=== PATIENT | female | born 1980 | race American Indian/Alaskan Native ===

== ENCOUNTER 2016-07-22 14:17 | Inpatient (IN) | payer MEDICAID, OTHER ==
[2016-07-22 16:14] LABS: Basophils % (Auto) 0.3 % (0.0-1.8); Eosinophils % (Auto) 0.1 % (0.0-4.3); Mean Corpuscular HGB Conc 30 % (30-34); Mean Corpuscular Volume 77 fl (79-97); Platelet Count 398 K/mm3 (140-440)
[2016-07-22 16:24] LABS: Mean Corpuscular Hemoglobin 23 pg (28-32)
[2016-07-22 16:25] LABS: Anion Gap 19 mmol/L; BUN/Creatinine Ratio 14.28; Blood Urea Nitrogen 10 mg/dL (7-17); Carbon Dioxide 25 mmol/L (22-30); Chloride 97.3 mmol/L (98-107); Glucose 141 mg/dL (65-100); Potassium 4.4 mmol/L (3.6-5.0); Sodium 137 mmol/L (137-145)
[2016-07-22 16:27] LABS: Hematocrit 18.3 % (30.3-42.9); Hemoglobin 5.4 gm/dl (10.1-14.3)
[2016-07-22] MEDS ORDERED: NACL 0.9% 500 ML 500 ML IV ONE (16:53)
--- NOTE | 2016-07-22 17:10 | Emergency Department Report ---
HPI - General Chief Complaint: Dizziness Time Seen by Provider: 07/22/16 16:52 - HPI HPI: This is a 36-year-old Afro-[place]guillan female who presents to the emergency department from home with complaint of a generalized headache consistent with her migraines, dizziness, chills and some vision changes. The patient says that she has been having a headache every day for the past 2 weeks, which is also the length of time that the other symptoms have been going on. Patient says that she gets a loss of vision in both eyes when standing that last about 7 -8 minutes but then it goes away and does not occur when she is sitting or laying down. She also has been having some paresthesias to hands. She has a past medical history of migraines. She does not have a primary care doctor. She tried some Zyrtec for her symptoms without much relief. No recent travel or sick contacts at home. Patient says that she has been having a menstrual cycle going on for the past 3 months and which she bleeds every day, sometimes in larger amounts and with clots. No WHIZZER HAND. ED Past Medical Hx - Past Medical History Hx Hypertension: No Hx Congestive Heart Failure: No Hx Diabetes: No Hx Deep Vein Thrombosis: No Hx Renal Disease: No Hx Sickle Cell Disease: No Hx Headaches / Migraines: Yes Hx Seizures: No Hx Asthma: No Hx COPD: No Hx HIV: No - Surgical History Past Surgical History?: No - Social History Smoking Status: Never Smoker Substance Use Type: None - Medications Home Medications: Home Medications Medication Instructions Recorded Confirmed Last Taken Type No Known Home Medications [No 07/18/13 07/18/13 Unknown History Reported Home Medications] ED Review of Systems ROS: Stated complaint: NUMB/DIZZINESS/SHIVERING/MIGRAINES Other details as noted in HPI Comment: All other systems reviewed and negative Constitutional: weakness. denies: chills, fever Eyes: vision change. denies: eye pain ENT: denies: ear pain, throat pain Respiratory: denies: cough, shortness of breath, wheezing Cardiovascular: denies: chest pain, palpitations Gastrointestinal: denies: abdominal pain, nausea, diarrhea Genitourinary: other (vaginal bleeding). denies: urgency, dysuria, discharge Musculoskeletal: denies: back pain, joint swelling, arthralgia Skin: denies: rash, lesions Neurological: headache, paresthesias Physical Exam - Physical Exam Vital Signs: Vital Signs 07/22/16 14:42 Temperature 99.1 F Pulse Rate 116 H Respiratory 20 Rate Blood Pressure 122/76 O2 Sat by Pulse 100 Oximetry Physical Exam: GENERAL: The patient is well-developed well-nourished. HEENT: Normocephalic. Atraumatic. Extraocular motions are intact. Patient has moist mucous membranes. Pupils equal reactive to light bilaterally. No nystagmus. Pale conjunctiva. NECK: Supple. Trachea is midline. CHEST/LUNGS: Clear to auscultation. There is no respiratory distress noted. HEART/CARDIOVASCULAR: Regular. There is no tachycardia. There is no gallop rub or murmur. ABDOMEN: Abdomen is soft, nontender. No guarding rebound tenderness. Patient has normal bowel sounds. There is no abdominal distention. SKIN: Warm and dry. NEURO: The patient is awake, alert, and oriented. The patient is cooperative. The patient has no focal neurologic deficits. The patient has normal speech. Cranial nerves II through XII grossly intact. MUSCULOSKELETAL: There is no tenderness or deformity. There is no limitation range of motion. There is no evidence of acute injury. Cap refill less than 2 seconds. ED Course Vital Signs 07/22/16 14:42 Temperature 99.1 F Pulse Rate 116 H Respiratory 20 Rate Blood Pressure 122/76 O2 Sat by Pulse 100 Oximetry ED Medical Decision Making - Lab Data Result diagrams: 07/22/16 15:52 07/22/16 15:52 - EKG Data -: EKG Interpreted by [place] EKG shows normal: sinus rhythm, axis, intervals, QRS complexes, ST-T waves Rate: tachycardia (103 bpm) - EKG Data When compared to previous EKG there are: previous EKG unavailable Interpretation: normal EKG (with sinus tach) - Radiology Data Radiology results: report reviewed CT of the head does not show any acute process including no hemorrhage, mass, shift, diffuse edema or skull fracture. Transvaginal ultrasound shows a 2.37 a left ovarian cyst. The endometrial stripe thickness measures up to 21 mm. This could be secondary to endometrial hyperplasia but other etiology such as carcinomas not excluded. Small amount of free fluid seen in the dependent portion of the pelvis. This is a nonspecific finding. - Medical Decision Making 36-year-old female presents with a two-week history of intermittent headaches, some vision change when standing or walking, chills and some generalized dizziness or weakness. I believe that most of the symptoms are due to the fact that the patient has a hemoglobin of 5.4. 2 units of packed red blood cells and ordered for transfusion to start. Due to her complaint of vision changes a CT of the head was done that did not show any bleed, shift, mass or any acute process. Patient's been having a 3 month history of vaginal bleeding. A transvaginal ultrasound was done that shows increased endometrial thickness that could be hyperplasia but carcinoma must be excluded as well. 2. Recent and a left ovarian cyst. Breasts the patient's labs are mostly unremarkable. EKG is also any signs of ST elevation [place] or dysrhythmia. She'll be admitted to hospital for transfusion and possible WHIZZER HAND consultation. She's been accepted for admission by the hospitalist, Dr. Lacy. - Differential Diagnosis dysfun uterine bleeding, brain tumor, compress migraine, symptomatically an Critical Care Time: No Critical care attestation.: If time is entered above; I have spent that time in minutes in the direct care of this critically ill patient, excluding procedure time. ED Disposition Clinical Impression: Dysfunctional uterine bleeding, Symptomatic anemia, Dizziness Ovarian cyst Qualifiers: Laterality: left Qualified Code(s): N83.202 - Unspecified ovarian cyst, left side Disposition: OP ADMITTED IP TO THIS HOSP Is pt being admited?: Yes Condition: Stable Time of Disposition: 20:59
--- NOTE | 2016-07-22 18:52 | Cat Scan Report ---
FINAL REPORT EXAM: CT HEAD/BRAIN WO CON HISTORY: ALTAMIRANO, vision change TECHNIQUE: Noncontrast serial axial images from skull base to vertex. PRIORS: None. FINDINGS: There is no mass effect or midline shift. There are no abnormal intra or extra-axial fluid collections. Cortical sulci and lateral ventricles are within normal limits for size and configuration. Basilar cisterns are patent. No acute intracranial hemorrhage is identified. Visualized paranasal sinuses and mastoid air cells are well aerated. No acute osseous abnormality is identified. IMPRESSION: 1. No abnormal mass or acute intracranial hemorrhage is identified.
[2016-07-22] MEDS ORDERED: NACL 0.9% 500 ML 500 ML ONE (19:43)
--- NOTE | 2016-07-22 19:50 | Ultrasound Report ---
FINAL REPORT EXAM: US TRANSVAGINAL HISTORY: Vaginal bleeding, pelvic pain TECHNIQUE: Endovaginal ultrasound was performed in multiple grayscale sonographic images were obtained of the uterus and adnexa. Doppler interrogation of the ovaries was performed. PRIORS: Transabdominal pelvic ultrasound from 07/22/2016 FINDINGS: Uterus measures approximately 10 x 5.8 x 6.7 centimeters with endometrial stripe thickness measuring up to 21.8 millimeters. Right ovary measures approximately 3.3 x 2.3 x 3.2 centimeters. Left ovary measures approximately 5.1 x 3.9 x 2.4 centimeters. There is a 2.3 centimeters cyst in the left ovary. Blood flow was detected in the ovaries, bilaterally. Small amount of free fluid is seen in the pelvis. IMPRESSION: 1. 2.3 centimeter left ovarian cyst. 2. Endometrial stripe thickness measures up to 21.8 millimeters. This could be secondary to endometrial hyperplasia, but other etiology such is carcinoma is not excluded. Biopsy may be necessary for diagnosis. Gynecology consultation is recommended.
--- NOTE | 2016-07-22 19:56 | Ultrasound Report ---
FINAL REPORT EXAM: US PELVIC COMPLETE HISTORY: Vaginal bleeding, pelvic pain TECHNIQUE: Transabdominal ultrasound was performed in multiple grayscale sonographic images were obtained of the uterus and adnexa PRIORS: Endovaginal ultrasound from 07/22/2016 FINDINGS: Uterus measures approximately 10 x 5.8 x 6.7 centimeters. Prominent endometrial stripe is again noted. Ovaries were not visualized during the exam. IMPRESSION: 1. Nonvisualization of the ovaries. 2. Prominent endometrial stripe is again noted. Biopsy may be necessary for further evaluation. Please refer to dictation from endovaginal ultrasound from 07/22/2016 for additional information.
[2016-07-22] MEDS ORDERED: DULCOLAX PR PRN (21:03)
[2016-07-22] MEDS ORDERED: TYLENOL PO PRN (21:03)
[2016-07-22] MEDS ORDERED: MILK OF MAGNESIA PO PRN (21:03)
[2016-07-22] MEDS ORDERED: ZOFRAN IV PRN (21:03)
--- NOTE | 2016-07-22 21:58 | History and Physical Report ---
History of Present Illness Date of examination: 07/22/16 Date of admission: 07/22/16 21:03 Chief complaint: Headache and dizzy spells for 2 weeks Transient loss of vision when standing for 2 weeks History of present illness: Miss. Simmons is a 36-year-old Afro-[place] female with history of chronic headaches who presents to the emergency department from home with complaint of a generalized headache consistent with her migraines, dizziness, and some vision changes. The patient says that she has been having a headache every day for the past 2 weeks, Patient says that she gets a loss of vision in both eyes when standing that last about 7-8 minutes but then it goes away and does not occur when she is sitting or laying down. She also has been having some paresthesias to hands. She has a past medical history of migraines. However she denies seeing a neurologist in the past. He denies any family history of migraine headaches She does not have a primary care doctor. She tried some Zyrtec for her symptoms without much relief. Patient says that she has been having a menstrual cycle going on for the past 3 months and she bleeds every day, sometimes in larger amounts and with clots. He has not seen an MILK BOTTLER since delivering a baby 2013. During workup she was found to be severely anemic with a hemoglobin of 5.2 and she is admitted for further management Past History Past Medical History: migraines Past Surgical History: No surgical history Social history: no significant social history Family history: no significant family history Medications and Allergies Allergies Allergy/AdvReac Type Severity Reaction Status Date / Time No Known Allergies Allergy Unverified 07/18/13 20:40 Home Medications Medication Instructions Recorded Confirmed Last Taken Type No Known Home Medications [No 07/18/13 07/18/13 Unknown History Reported Home Medications] Active Meds: Active Medications Acetaminophen (Tylenol) 650 mg PO Q4H PRN PRN Reason: Pain MILD(1-3)/Fever >100.5/ALTAMIRANO Acetaminophen/Hydrocodone Bitart ([place] 5/325) 1 each PO Q6H PRN PRN Reason: Pain, Moderate (4-6) Bisacodyl (Dulcolax) 10 mg AR QDAY PRN PRN Reason: Constipation unrelieved by MOM Heparin Sodium (Porcine) (Heparin) 5,000 unit SUB-Q Q8HR CHRIS Magnesium Hydroxide (Milk Of Magnesia) 30 ml PO Q4H PRN PRN Reason: Constipation Ondansetron HCl (Zofran) 4 mg IV Q8H PRN PRN Reason: N/V unrelieved by Reglan Review of Systems Constitutional: weakness, no weight loss, no weight gain, no fever, no chills Ears, nose, mouth and throat: headache (chronic headaches for many years. Denies any aura preceding the headache but she states she not function during headaches), no ear pain, no sore throat Cardiovascular: lightheadedness, no chest pain, no palpitations, no syncope, no shortness of breath, no dyspnea on exertion Respiratory: no cough, no shortness of breath, no dyspnea on exertion Gastrointestinal: no abdominal pain, no nausea, no vomiting, no diarrhea, no constipation, no melena Genitourinary Female: menorrhagia (she has been bleeding every day for the past 3 months), no dysmenorrhea, no pelvic pain, no flank pain, no urinary frequency , no stress incontinence, no urge incontinence Rectal: no pain Musculoskeletal: no neck pain, no low back pain Integumentary: no rash Neurological: headaches, migraines, no head injury, no seizures, no syncope Psychiatric: no anxiety, no depression Endocrine: no excessive thirst, no polydipsia, no polyuria Exam - Constitutional Vitals: Temp Pulse Resp BP Pulse Ox 98.6 F 99 H 15 113/65 100 07/22/16 20:55 07/22/16 20:55 07/22/16 20:55 07/22/16 20:55 07/22/16 20:55 General appearance: Present: no acute distress, well-nourished - EENT Eyes: Present: PERRL, EOM intact ENT: hearing intact, clear oral mucosa, no thrush - Neck Neck: Present: supple, normal ROM. Absent: masses or JVD - Respiratory Respiratory effort: normal Respiratory: bilateral: CTA - Cardiovascular Rhythm: regular Heart Sounds: Present: S1 & S2 - Extremities Extremities: No edema - Abdominal General gastrointestinal: Present: soft, non-tender. Absent: hepatomegaly, splenomegaly - Rectal Rectal Exam: deferred - Integumentary Integumentary: Present: clear - Musculoskeletal Musculoskeletal: strength equal bilaterally - Psychiatric Psychiatric: appropriate mood/affect - Neurologic Neurologic: CNII-XII intact, no focal deficits, moves all extremities Results - Labs CBC & Chem 7: 07/22/16 15:52 07/22/16 15:52 Assessment and Plan - Patient Problems (1) Symptomatic anemia Current Visit: Yes Status: Acute Plan to address problem: Patient is currently receiving 2 units of packed RBC Monitor H&H (2) Menorrhagia with irregular cycle Current Visit: Yes Status: Acute Plan to address problem: [employer] AROUND consult has been requested Transvaginal ultrasound shows endometrial hyperplasia and no mention of any fibroids (3) Chronic headaches Current Visit: Yes Status: Acute Qualifiers: Headache type: H Intractability: I Plan to address problem: Most likely tension headaches Rule out migraines We will request neurology consult as the patient has been having transient vision loss for the past 2 weeks (4) Transient visual loss of both eyes Current Visit: Yes Status: Acute Plan to address problem: Await neurology evaluation
[2016-07-22] MEDS: NORCO 5/325 PO PRN (23:49)
[2016-07-23] MEDS ORDERED: NACL 0.9% 500 ML 500 ML ONE (00:05)
[2016-07-23] MEDS: HEPARIN SUB-Q SCH ×4 (00:40→22:00)
[2016-07-23 06:32] LABS: Hematocrit 22.9 % (30.3-42.9); Hemoglobin 7.1 gm/dl (10.1-14.3); Mean Corpuscular HGB Conc 31 % (30-34); Mean Corpuscular Volume 79 fl (79-97); Platelet Count 329 K/mm3 (140-440); Red Blood Count 2.91 M/mm3 (3.65-5.03); Red Cell Distribution Width 17.1 % (13.2-15.2); White Blood Count 12.6 K/mm3 (4.5-11.0)
[2016-07-23 06:36] LABS: Mean Corpuscular Hemoglobin 25 pg (28-32)
--- NOTE | 2016-07-23 11:29 | Progress Note ---
Assessment and Plan Assessment and plan: Miss. Simmons is a 36-year-old Afro-Martiniquais female with history of chronic headaches who presents to the emergency department from home with complaint of a generalized headache consistent with her migraines, dizziness, and some vision changes. The patient says that she has been having a headache every day for the past 2 weeks, Patient says that she gets a loss of vision in both eyes when standing that last about 7-8 minutes but then it goes away and does not occur when she is sitting or laying down. She also has been having some paresthesias to hands. She has a past medical history of migraines. However she denies seeing a neurologist in the past. He denies any family history of migraine headaches She does not have a primary care doctor. She tried some Zyrtec for her symptoms without much relief. Patient says that she has been having a menstrual cycle going on for the past 3 months and she bleeds every day, sometimes in larger amounts and with clots. He has not seen an [employer]PER[employer] since delivering a baby 2013. During workup she was found to be severely anemic with a hemoglobin of 5.2 and she is admitted for further management * Symptomatic anemia secondary to menorrhagia * Menorrhagia with irregular cycle * Chronic migraine * Recurrent transient visual loss both eyes rule out migraine with aura rule out TIA * Morbid obesity Plan * We'll obtain an MRI of the brain rule out Internuclear opathalamalogy * Await Neurology and G[employer]INE MECH[employer]IC EVAL * Considering the patient states she blanks out for about 8 minutes advised against driving until this is resolved. She verbalizes that she does not drive at this time. * Weight loss modality has been discussed in detail * DVT and GI prophylaxis * Plan of care discussed with the patient in detail and also with family member in the room with the patient's consent * Suspected discharge in a.m. if hemoglobin and hematocrit stable History Interval history: Follow-up severe anemia Patient seen and examined this morning in no acute distress Denies any chest pain, nausea, vomiting, diarrhea No fever noted blood pressure controlled No adverse events reported to me by nursing staff Hospitalist Physical - Physical exam Narrative exam: VITAL SIGNS: Reviewed. GENERAL: The patient appeared well nourished and normally developed, obese. Vital signs as documented. HEAD: No signs of head trauma. EYES: Pupils are equal. Extraocular motions intact. EARS: Hearing grossly intact. MOUTH: Oropharynx is normal. NECK: No adenopathy, no JVD. CHEST: Chest with clear breath sounds bilaterally. No wheezes, rales, or rhonchi. CARDIAC: Regular rate and rhythm. S1 and S2, without murmurs, gallops, or rubs. VASCULAR: No Edema. Peripheral pulses normal and equal in all extremities. ABDOMEN: Soft, without detectable tenderness. No sign of distention. No rebound or guarding, and no masses palpated. Bowel Sounds normal. MUSCULOSKELETAL: Good range of motion of all major joints. Extremities without clubbing, cyanosis or edema. NEUROLOGIC EXAM: Alert and oriented x 3. No focal sensory or strength deficits. Speech normal. Follows commands. PSYCHIATRIC: Mood normal. SKIN: No rash or lesions. - Constitutional Vitals: Temp Pulse Resp BP Pulse Ox 98.3 F 76 16 107/59 99 07/23/16 07:05 07/23/16 07:05 07/23/16 07:05 07/23/16 07:05 07/23/16 07:05 General appearance: Present: no acute distress, well-nourished Results - Labs CBC & Chem 7: 07/23/16 05:54 07/22/16 15:52 Labs: Laboratory Last Values WBC 12.6 K/mm3 (4.5-11.0) H 07/23/16 05:54 RBC 2.91 M/mm3 (3.65-5.03) L 07/23/16 05:54 Hgb 7.1 gm/dl (10.1-14.3) L 07/23/16 05:54 Hct 22.9 % (30.3-42.9) L 07/23/16 05:54 MCV 79 fl (79-97) 07/23/16 05:54 MCH 25 pg (28-32) L 07/23/16 05:54 MCHC 31 % (30-34) 07/23/16 05:54 RDW 17.1 % (13.2-15.2) H 07/23/16 05:54 Plt Count 329 K/mm3 (140-440) 07/23/16 05:54 Lymph % (Auto) 14.9 % (13.4-35.0) 07/22/16 15:52 [place] % (Auto) 5.8 % (0.0-7.3) 07/22/16 15:52 Eos % (Auto) 0.1 % (0.0-4.3) 07/22/16 15:52 Baso % (Auto) 0.3 % (0.0-1.8) 07/22/16 15:52 Lymph # 1.9 K/mm3 (1.2-5.4) 07/22/16 15:52 [place] # 0.7 K/mm3 (0.0-0.8) 07/22/16 15:52 Eos # 0.0 K/mm3 (0.0-0.4) 07/22/16 15:52 Baso # 0.0 K/mm3 (0.0-0.1) 07/22/16 15:52 Seg Neutrophils % 78.9 % (40.0-70.0) H 07/22/16 15:52 Seg Neutrophils # 10.2 K/mm3 (1.8-7.7) H 07/22/16 15:52 Sodium 137 mmol/L (137-145) 07/22/16 15:52 Potassium 4.4 mmol/L (3.6-5.0) 07/22/16 15:52 Chloride 97.3 mmol/L (98-107) L 07/22/16 15:52 Carbon Dioxide 25 mmol/L (22-30) 07/22/16 15:52 Anion Gap 19 mmol/L 07/22/16 15:52 BUN 10 mg/dL (7-17) 07/22/16 15:52 Creatinine 0.7 mg/dL (0.7-1.2) 07/22/16 15:52 Estimated GFR > 60 ml/min 07/22/16 15:52 BUN/Creatinine Ratio 14.28 % 07/22/16 15:52 Glucose 141 mg/dL (65-100) H 07/22/16 15:52 Hemoglobin A1c 5.6 % (4-6) 07/23/16 05:54 Calcium 9.0 mg/dL (8.4-10.2) 07/22/16 15:52 TSH 1.980 mlU/mL (0.270-4.200) 07/23/16 08:55 HCG, Qual Negative (Negative) 07/22/16 18:47 Blood Type O NEGATIVE 07/22/16 15:52 Antibody Screen Negative 07/22/16 15:52 Crossmatch See Detail 07/22/16 15:52 - Imaging and Cardiology MRI - head: pending
--- NOTE | 2016-07-23 12:20 | Magnetic Resonance Report ---
MRI BRAIN WITH/WITHOUT CONTRAST: History: TIA. Comparison: CT head without contrast dated 07/22/16. Technique: Multiple T1 and T2 weighted images were obtained in multiple planes. Axial diffusion and gradient imaging was performed. Post contrast T1 images in two planes were obtained following IV gadolinium. Findings: The brain parenchyma signal intensity and its tim-white interface are normal on all sequences. No abnormal parenchymal signal. No diffusion restriction, hemorrhage, mass effect or extra-axial fluid collection. Ventricular size is normal and symmetric. The basal cisterns are clear. The brainstem and cerebellar hemispheres are within normal limits. The fourth ventricle is midline. The paranasal sinuses and mastoid air cells are well aerated. Normal flow voids are identified in the appropriate vessels at the standing [place] of [place]. No abnormal enhancement is identified following IV gadolinium. Impression: 1. Unremarkable MRI brain with and without contrast.
--- NOTE | 2016-07-23 13:04 | Consultation ---
History of Present Illness Consult date: 07/23/16 Reason for consult: menorrhagia History of present illness: This is a 36-year-old black female para 4004 last Pap smear was 3 years ago who presented to the emergency room with complaints of increasing daily migraines with the loss of vision and also history of menorrhalgia. Patient's of last menstrual period. She says started the normal time on 04/27/2016 and has had daily bleeding since. Patient states she has to change a pad may be to the 3 times a day. Sensation normal. Her usually heavy and last only 7 days. Patient's workup in the ER revealed severe anemia. And patient was received down to the units of packed red blood cells to did have a pelvic ultrasound revealed thickened endometrium but no evidence of leiomyomata the patient has no history of leiomyomata. Presently in the patient's bleeding is moderate and she denies any pain. She thinks all of her symptoms or migraine and abnormal bleeding is due to increased stress at home and work. 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 denies: abnormal PAP smear - Obstetrical History : 4 Para: 4 Medications and Allergies Allergies Allergy/AdvReac Type Severity Reaction Status Date / Time No Known Allergies Allergy Unverified 07/18/13 20:40 Home Medications Medication Instructions Recorded Confirmed Last Taken Type No Known Home Medications [No 07/18/13 07/18/13 Unknown History Reported Home Medications] Active Meds: Active Medications Acetaminophen (Tylenol) 650 mg PO Q4H PRN PRN Reason: Pain MILD(1-3)/Fever >100.5/[place]O Acetaminophen/Hydrocodone Bitart ([place] 5/325) 1 each PO Q6H PRN PRN Reason: Pain, Moderate (4-6) Last Admin: 07/22/16 23:49 Dose: 1 each Bisacodyl (Dulcolax) 10 mg [place] QDAY PRN PRN Reason: Constipation unrelieved by MOM Heparin Sodium (Porcine) (Heparin) 5,000 unit SUB-Q Q8HR CHRIS Last Admin: 07/23/16 05:38 Dose: Not Given Magnesium Hydroxide (Milk Of Magnesia) 30 ml PO Q4H PRN PRN Reason: Constipation Ondansetron HCl (Zofran) 4 mg IV Q8H PRN PRN Reason: N/V unrelieved by Milla Review of Systems Genitourinary: vaginal bleeding - Vital Signs Vital signs: Vital Signs Temp Pulse Resp BP Pulse Ox 99.1 F 116 H 20 122/76 100 07/22/16 14:42 07/22/16 14:42 07/22/16 14:42 07/22/16 14:42 07/22/16 14:42 Temp Pulse Resp BP Pulse Ox 98.3 F 76 16 107/59 99 07/23/16 07:05 07/23/16 07:05 07/23/16 07:05 07/23/16 07:05 07/23/16 07:05 - Physical Exam Breasts: Positive: deferred Cardiovascular: Regular rate Lungs: Positive: Normal air movement Abdomen: Positive: normal appearance, soft, other (obese) Genitourinary (Female): Positive: normal external genitalia, normal perenium Vulva: both: normal (Pad in place only has a small amount of blood has been on for more than 2 hours) Vagina: Positive: normal moisture Results Result Diagrams: 07/23/16 05:54 07/22/16 15:52 Abnormal lab results 07/23/16 Range/Units 05:54 WBC 12.6 H (4.5-11.0) K/mm3 RBC 2.91 L (3.65-5.03) M/mm3 Hgb 7.1 L (10.1-14.3) gm/dl Hct 22.9 L (30.3-42.9) % MCH 25 L (28-32) pg RDW 17.1 H (13.2-15.2) % All other labs normal. Ultrasound: report reviewed (has follicular cysts and thickened endometrium) Assessment and Plan - Patient Problems (1) Menorrhagia with irregular cycle Current Visit: Yes Status: Acute Plan to address problem: Patient bleeding at present is not excessive. This our results reviewed patient without any leiomyomata but does have thickened endometrium which needs to be evaluated outpatient basis with endometrial biopsy. She has not had a history of prolonged menses present and could be secondary to her stressful home situation. Options discussed with the patient that could be done for present include starting him treated with progesterone due to her history of severe migraines. Estrogenic is usually indicated to think that would make her migraines worse. Long-term plans a follow-up and consider a progesterone IUD possible endometrial ablation. We'll contact patient's attending to discuss starting progesterone due to the possibility of aggravating her migraines patient be given office information to follow as outpatient. (2) Ovarian cyst Current Visit: Yes Status: Acute Qualifiers: Laterality: left Qualified Code(s): N83.202 - Unspecified ovarian cyst, left side Plan to address problem: Consistent with probable benign follicular cyst. (3) Symptomatic anemia Current Visit: Yes Status: Acute
[2016-07-23] MEDS: NORCO 5/325 PO PRN (15:22)
[2016-07-23] MEDS ORDERED: NORCO 5/325 PO PRN (18:30)
[2016-07-24 00:19] LABS: Bacteria,Urine 1+ /HPF (Negative); Bilirubin,Urine NEG (Negative); Blood,Urine LG (Negative); Ketones,Urine NEG (Negative); Leukocyte Esterase,Urine NEG (Negative); Mucus,Urine 2+ /HPF; Nitrite,Urine NEG (Negative); Protein,Urine <15 mg/dL mg/dL (Negative)
[2016-07-24] MEDS ORDERED: MORPHINE IV ONE (06:06)
[2016-07-24 06:14] LABS: Hematocrit 24.4 % (30.3-42.9); Hemoglobin 7.6 gm/dl (10.1-14.3); Mean Corpuscular HGB Conc 31 % (30-34); Mean Corpuscular Volume 79 fl (79-97); Platelet Count 331 K/mm3 (140-440); Red Blood Count 3.11 M/mm3 (3.65-5.03); Red Cell Distribution Width 17.6 % (13.2-15.2); White Blood Count 10.7 K/mm3 (4.5-11.0)
[2016-07-24 06:24] LABS: Mean Corpuscular Hemoglobin 25 pg (28-32)
[2016-07-24 06:34] LABS: Anion Gap 14 mmol/L; BUN/Creatinine Ratio 21.66; Blood Urea Nitrogen 13 mg/dL (7-17); Calcium 8.6 mg/dL (8.4-10.2); Carbon Dioxide 27 mmol/L (22-30); Chloride 101.9 mmol/L (98-107); Glucose 113 mg/dL (65-100); Sodium 139 mmol/L (137-145)
[2016-07-24] MEDS: HEPARIN SUB-Q SCH ×2 (06:42→14:51)
--- NOTE | 2016-07-24 08:11 | Event Note ---
Date: 07/24/16 Patient is resting stable. My office information was given to her and place prescription for chart continue Provera. Patient to follow up as outpatient. We'll sign off. Please contact me if any further assistance.
--- NOTE | 2016-07-24 08:34 | Discharge Summary ---
Providers - Providers Date of Admission: 07/22/16 21:03 Date of discharge: 07/24/16 Attending physician: MARIUM MACARIO MD Primary care physician: WELL TENDER Hospitalization Reason for admission: Migranie Condition: Stable Hospital course: Miss. Simmons is a 36-year-old Afro-[place] female with history of chronic headaches who presents to the emergency department from home with complaint of a generalized headache consistent with her migraines, dizziness, and some vision changes. The patient says that she has been having a headache every day for the past 2 weeks, Patient says that she gets a loss of vision in both eyes when standing that last about 7-8 minutes but then it goes away and does not occur when she is sitting or laying down. She also has been having some paresthesias to hands. She has a past medical history of migraines. However she denies seeing a neurologist in the past. He denies any family history of migraine headaches She does not have a primary care doctor. She tried some Zyrtec for her symptoms without much relief. Patient says that she has been having a menstrual cycle going on for the past 3 months and she bleeds every day, sometimes in larger amounts and with clots. He has not seen an EXIT BOOTH AGENT since delivering a baby 2013. During workup she was found to be severely anemic with a hemoglobin of 5.2 and she is admitted for further management. She was transfused 2 units packed red blood cells with good response. She was seen by EVALUATION SPECIALIST recommended to the status and progesterone they did discuss migraine with her as this may worsen the migraine. We did obtain neurology examination and also recommended the patient be seen by neurology outpatient for now I recommended patient does not drive as she does have periods of blackouts lasting about 8 minutes although she stay she knows walking when they are about to happen. I recommended no mechanized vehicle or swimming at this point. The patient verbalized understanding. MRI of the brain was negative. * Symptomatic anemia secondary to menorrhagia * Menorrhagia with irregular cycle * Veritgo * Migraine with aura * Recurrent transient visual loss both eyes rule out migraine with aura rule out TIA * Morbid obesity Disposition: DISCHARGED TO HOME OR SELFCARE Time spent for discharge: 35 MINS Core Measure Documentation - Palliative Care Palliative Care/ Comfort Measures: Not Applicable - Core Measures Any of the following diagnoses?: none - VTE Discharge Requirements Deep Vein Thrombosis/Pulmonary Embolism Present on Admission: No Exam - Physical Exam Narrative exam: VITAL SIGNS: Reviewed. GENERAL: The patient appeared well nourished and normally developed, obese. Vital signs as documented. HEAD: No signs of head trauma. EYES: Pupils are equal. Extraocular motions intact. EARS: Hearing grossly intact. MOUTH: Oropharynx is normal. NECK: No adenopathy, no JVD. CHEST: Chest with clear breath sounds bilaterally. No wheezes, rales, or rhonchi. CARDIAC: Regular rate and rhythm. S1 and S2, without murmurs, gallops, or rubs. VASCULAR: No Edema. Peripheral pulses normal and equal in all extremities. ABDOMEN: Soft, without detectable tenderness. No sign of distention. No rebound or guarding, and no masses palpated. Bowel Sounds normal. MUSCULOSKELETAL: Good range of motion of all major joints. Extremities without clubbing, cyanosis or edema. NEUROLOGIC EXAM: Alert and oriented x 3. No focal sensory or strength deficits. Speech normal. Follows commands. PSYCHIATRIC: Mood normal. SKIN: No rash or lesions. - Constitutional Vitals: Temp Pulse Resp BP Pulse Ox 97.2 F L 73 20 123/59 97 07/24/16 00:00 07/24/16 00:00 07/24/16 06:25 07/24/16 00:00 07/24/16 00:00 Plan Activity: advance as tolerated, no driving until cleared by PCP, fall precautions Diet: low cholesterol Special Instructions: record daily BP diary Follow up with: NINOSKA MITCHELL MD [Staff Physician] - 7 Days PRIMARY CARE, [Primary Care Provider] - 3-5 Days RUSSELL BYRNE MD [Staff Physician] - 7 Days Forms: Work/School Release Form Prescriptions: Butalbit/Acetamin/Caff/Codeine [Fioricet/Codeine [id number]] 1 cap PO Q8HR PRN #30 cap PRN Reason: Migraine Headache HYDROcodone/APAP 5-325 [[place] 5-325 mg TAB] 2 each PO Q6H PRN #14 tablet PRN Reason: Pain, Moderate (4-6) Meclizine [Antivert] 25 mg PO TID PRN #30 tablet PRN Reason: Vertigo medroxyPROGESTERone ACETATE [Provera] 10 mg PO QDAY #10 tablet
[2016-07-24] MEDS ORDERED: NACL 0.9% 1000 ML 1,000 ML IV ONE (09:32)
[2016-07-24] MEDS ORDERED: FIORICET PO PRN (09:36)
[2016-07-24] MEDS ORDERED: PROVERA PO SCH (10:00)
--- NOTE | 2016-07-24 11:02 | Admit Criteria Form ---
Admission Criteria Documentation: ANEMIA, IRON DEFICIENCY OR UNSPECIFIED Clinical Indications for Inpatient Care (Place 'X' for any and all applicable criteria): Admission is indicated for ANY ONE of the following(1)(2)(3)(4)(5)(6)(7): [X] I. Inpatient admission required rather than observation care (Also use Anemia, Iron Deficiency or Unspecified: Observation Care guideline as appropriate) because of ANY ONE of the following: [] a) Hemodynamic instability that is severe or persistent [] b) Active bleeding that cannot be rapidly controlled [] c) CVS symptoms (i.e., dyspnea, chest pain, heart failure) that are severe or persistent [] d) Neurologic symptoms (i.e., cognitive impairment, recurrent syncope or near syncope) that are severe or persistent [] e) Cardiac arrhythmias of immediate concern [] f) Acute peripheral ischemia (e.g., pulseless, cool, mottled, or cyanotic extremity) [] g) High-risk low platelet count [] h) Acute renal failure [] i) Ongoing transfusion for blood loss (greater than 2 units) [] j) IV fluid to replace significant ongoing (eg, >24 hours) losses (> 3 L/m2 per day) [] k) Pulmonary artery catheter monitoring [] l) Supplemental oxygen or respiratory treatments for over 24 hours that are performable only in acute inpatient setting [] m) Immediate inpatient surgery [X] n) Other condition, treatment or monitoring requiring inpatient admission [] II Active massive hemorrhage [] III. Active hemolysis with rapidly progressive anemia [A](6) Extended stay beyond goal length of stay may be needed for (17)(18) []a) Diagnosed cause of anemia requiring longer hospitalization (eg, active GI bleeding, immune hemolysis requiring electrophoresis, complications of malignancy requiring acute care []b) Continued emergent anemia indicators (23) []c) Transfusion reactions []d) Associated leukopenia or thrombocytopenia needing inpatient care []e) Active comorbidities (eg, renal failure, heart failure) The original [facility] Care Guidelines content created by [facility] Care Guidelines has been revised. The portions of the content which have been revised are identified through the use of italic text or in bold. [facility] Guidelines has neither reviewed nor approved the modified material. All other unmodified content is copyright [facility] Care Guidelines. Please see references footnoted in the original [facility] edition 2016 Admission Criteria Met: Yes
--- NOTE | 2016-07-24 15:29 | Consultation ---
History of Present Illness - Reason for Consult Consult date: 07/24/16 headaches - History of Present Illness very severe migraine a/w vertigo and visual blurring plan further work up suspecy that lyrica best choice of med will follow up the exam is benign on neuro eval. Past History Past Medical History: migraines Past Surgical History: No surgical history Social history: no significant social history Family history: no significant family history Medications and Allergies Allergies Allergy/AdvReac Type Severity Reaction Status Date / Time No Known Allergies Allergy Unverified 07/18/13 20:40 Home Medications Medication Instructions Recorded Confirmed Last Taken Type Butalbit/Acetamin/Caff/Codeine 1 cap PO Q8HR PRN #30 cap 07/24/16 Unknown Rx [Fioricet/Codeine [id number]] HYDROcodone/APAP 5-325 [[place] 2 each PO Q6H PRN #14 tablet 07/24/16 Unknown Rx 5-325 mg TAB] medroxyPROGESTERone ACETATE 10 mg PO QDAY tablet 07/24/16 Unknown Rx [Provera] medroxyPROGESTERone ACETATE 10 mg PO QDAY #10 tablet 07/24/16 Unknown Rx [Provera] Active Meds: Active Medications Acetaminophen (Tylenol) 650 mg PO Q4H PRN PRN Reason: Pain MILD(1-3)/Fever >100.5/[place] Acetaminophen/Butalbital/Caffeine (Fioricet) 1 tab PO Q8H PRN PRN Reason: Headache Last Admin: 07/24/16 14:50 Dose: 1 tab Acetaminophen/Hydrocodone Bitart ([place] 5/325) 2 each PO Q6H PRN PRN Reason: Pain, Moderate (4-6) Last Admin: 07/23/16 23:11 Dose: 2 each Bisacodyl (Dulcolax) 10 mg [place] QDAY PRN PRN Reason: Constipation unrelieved by MOM Heparin Sodium (Porcine) (Heparin) 5,000 unit SUB-Q Q8HR [facility] Last Admin: 07/24/16 14:51 Dose: Not Given Magnesium Hydroxide (Milk Of Magnesia) 30 ml PO Q4H PRN PRN Reason: Constipation Medroxyprogesterone Acetate (Provera) 10 mg PO QDAY [facility] Last Admin: 07/24/16 09:50 Dose: 10 mg Ondansetron HCl (Zofran) 4 mg IV Q8H PRN PRN Reason: N/V unrelieved by Reglan Exam - Constitutional Vitals: Temp Pulse Resp BP Pulse Ox 97.2 F L 76 16 109/58 100 07/24/16 08:11 07/24/16 08:11 07/24/16 08:11 07/24/16 08:11 07/24/16 08:11 Results - Labs CBC & Chem 7: 07/24/16 05:26 07/24/16 05:26 Labs: Abnormal lab results 07/22/16 07/24/16 07/24/16 Range/Units 22:15 05:26 05:26 RBC 3.11 L (3.65-5.03) M/mm3 Hgb 7.6 L (10.1-14.3) gm/dl Hct 24.4 L (30.3-42.9) % MCH 25 L (28-32) pg RDW 17.6 H (13.2-15.2) % Creatinine 0.6 L (0.7-1.2) mg/dL Glucose 113 H (65-100) mg/dL Urine WBC (Auto) 8.0 H (0.0-6.0) /HPF
[2016-07-24 16:38] VITALS: BP 110/67
[2016-07-24] MEDS ORDERED: ANTIVERT PO PRN (16:47)
== END 2016-07-24 18:30 | disposition home or self-care (01) | DRG 760 ==
LOC: ED 14:17 → 3A 21:03
PROVIDERS: ADMIT Internal Medicine; ATTEND Internal Medicine
PROC: 30233N1 Transfusion of Nonautologous Red Blood Cells into Peripheral Vein, Percutaneous Approach (ICD-10-PCS; principal; 2016-07-22)
DX: N92.1 Excessive and frequent menstruation with irregular cycle (principal); Z68.41 Body mass index [BMI] 40.0-44.9, adult; G45.9 Transient cerebral ischemic attack, unspecified; D64.9 Anemia, unspecified; G43.109 Migraine with aura, not intractable, without status migrainosus; H54.3 Unqualified visual loss, both eyes; N83.202 Unspecified ovarian cyst, left side; E66.01 Morbid (severe) obesity due to excess calories; R42 Dizziness and giddiness; Z98.51 Tubal ligation status
CPT/HCPCS: 36415; 70450; 70553; 76830; 76856; 80048; 81001; 81025; 83036; 84443; 84703; 85025; 85027; 86850; 86900; 86901; 86920; 93005; 93010; A9577; J2270; J7030; J7040; P9016